=== PATIENT | female | born 1970 | race Caucasian/White ===

== ENCOUNTER 2021-10-14 07:11 | Emergency (ER) | payer SELFPAY ==
[~2021-10-14] VITALS: Ht 170.2 cm; Wt 74.1 kg
[2021-10-14 07:34] VITALS: BP 147/94; PULSE 98; TEMP 98
[2021-10-14] MEDS ORDERED: ROBAXIN 75750 MG/TAB PO (07:57)
== END 2021-10-14 08:11 | disposition home or self-care (01) ==
LOC: COL.ER 07:11
DX: M54.2 Cervicalgia (principal); Z87.891 Personal history of nicotine dependence; V43.52XA Car driver injured in collision with other type car in traffic accident, initial encounter